=== PATIENT | female | born 1945 | race Caucasian/White ===

== ENCOUNTER 2021-04-12 09:28 | Outpatient (REF) | payer MEDICARE, SELFPAY ==
[2021-04-12 10:30] LABS: MANUAL DIFF FLAG NO
[2021-04-12 10:43] LABS: Basophils Absolute Auto 0.1 X10*3/uL (0.0-0.2); Basophils Percent Auto 1.1 % (0-2); Eosinophils Absolute Auto 0.2 X10*3/uL (0.0-0.4); Eosinophils Percent Auto 2.5 % (0-4); Hematocrit 42.6 % (37-47); Hemoglobin 13.8 g/dl (12.0-16.0); Imm Gran Abs Auto 0.03 X10*3/uL (0.00-0.03); Imm Gran Pct Auto 0.5 % (0.0-0.4); Lymphocytes Absolute Auto 3.1 X10*3/uL (1.2-4.9); Lymphocytes Percent Auto 47.8 % (20-40); Mean Corpuscular HGB Conc 32.4 g/dl (31.0-35.0); Mean Corpuscular Hemoglobin 28.9 pg (27.0-33.0); Mean Corpuscular Volume 89.1 fL (80-98); Mean Platelet Volume 10.5 fL (9.4-12.3); Monocytes Absolute Auto 0.6 X10*3/uL (0.1-1.2); Monocytes Percent Auto 8.5 % (2-11); Neutrophils Absolute Auto 2.6 X10*3/uL (2.0-8.3); Neutrophils Percent Auto 39.6 % (45-73); Platelet Count 274 X10*3/uL (160-400); Red Blood Count 4.78 X10*6/uL (4.20-5.50); Red Cell Distribution Width 13.2 % (11.0-16.0); White Blood Count 6.5 X10*3/uL (4.8-10.8)
[2021-04-12 11:00] LABS: Glucose Urine UA NEG (NEG); Leukocyte Esterase Urine NEG (NEG); Nitrite Urine NEG (NEG); PH 5.5 (5.0-8.0); Specific Gravity - Urine 1.025 (1.005-1.025); Urine Blood NEG (NEG); Urine Ketones NEG (NEG); Urine Protein NEG (NEG-TRACE)
[2021-04-12 11:07] LABS: Appearance Urine CLEAR; Color Urine YELLOW
[2021-04-12 11:22] LABS: Alanine Aminotransferase 24 U/L (0-31); Albumin Level 4.3 g/dL (3.5-5.0); Alkaline Phosphatase 67 U/L (39-117); Anion Gap 13 (12-20); Aspartate Amino Transferase 23 U/L (5-31); Bilirubin Total 0.5 mg/dL (0.0-1.0); Blood Urea Nitrogen 18 mg/dL (9-16); Calcium 9.7 mg/dL (8.4-10.2); Carbon Dioxide 26 mmol/L (22-29); Chloride 106 mmol/L (96-108); Cholesterol 261 mg/dL; Estimated Glomerular Filt Rate 56; Glucose Fasting 85 mg/dL (60-99); HDL Cholesterol 70 mg/dL; LDL Cholesterol Calculated 177 mg/dl; Potassium 4.4 mmol/L (3.3-5.1); Sodium 141 mmol/L (135-145); Total Protein 7.4 g/dL (6.5-8.0); Triglycerides 73 mg/dL
[2021-04-12 13:09] LABS: Reflex LDLD? No
== END 2021-04-12 09:29 | disposition home or self-care (01) ==
LOC: HO.LNP 09:28
PROVIDERS: PCP Internal Medicine; Visit Provider Internal Medicine
DX: Z00.00 Encounter for general adult medical examination without abnormal findings (principal); D72.820 Lymphocytosis (symptomatic); E78.00 Pure hypercholesterolemia, unspecified; I10 Essential (primary) hypertension
CPT/HCPCS: 80053; 80061; 81003; 85025

== ENCOUNTER 2021-10-12 13:59 | Emergency (ER) | payer OTHER, MEDICARE, SELFPAY ==
--- NOTE | ~2021-10-12 | CT_ITS ---
EXAMINATION: CT HEAD WITHOUT CONTRAST CLINICAL INFORMATION: Headache. COMPARISON: None TECHNIQUE: Contiguous axial imaging was performed from the skull base to vertex without intravenous administration of contrast. This CT examination was performed using dose optimization techniques as appropriate, variously including the following: *Automated exposure control *Adjustment of mA and/or kV according to patient size (this includes techniques or standardized protocols for targeted exams where dose is matched to indication/reason for exam; i.e. extremities or head) *Use of iterative reconstruction technique DLP: 603 mGy-cm FINDINGS: There are subarachnoid blood products in the right parieto-occipital lobe for example as visualized on images 26 and 27 of series 2. No extra-axial collections or intraparenchymal hemorrhage. There is no evidence of acute edematous territorial infarction. A few foci of hypoattenuation in the periventricular and deep white matter are consistent with mild microangiopathy. Padgett-white matter differentiation is preserved. Proportional prominence of the ventricles and sulcal spaces. No evidence for obstructive hydrocephalus. No abnormal mass effect or midline shift. No acute soft tissue or osseous abnormalities. The mastoid air cells and paranasal sinuses are clear. CT/CT head/brain wo con IMPRESSION: Small amount of subarachnoid bleeding in the right parieto-occipital lobe. This critical result was discussed with Dr. Paz at 10/12/2021 9:51 PM and it was ascertained that the content and urgency of the report was understood at the time of direct communication.
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
[2021-10-12 14:29] VITALS: BP 147/70; PULSE 84; RESP 18; TEMP 36.6; O2SAT 97
[2021-10-12 20:16] LABS: MANUAL DIFF FLAG NO
[2021-10-12 20:17] LABS: Basophils Absolute Auto 0.1 X10*3/uL (0.0-0.2); Basophils Percent Auto 0.7 % (0-2); Eosinophils Absolute Auto 0.1 X10*3/uL (0.0-0.4); Eosinophils Percent Auto 1.6 % (0-4); Hematocrit 41.9 % (37.0-47.0); Hemoglobin 13.8 g/dl (12.0-16.0); Imm Gran Abs Auto 0.01 X10*3/uL (0.00-0.03); Imm Gran Pct Auto 0.1 % (0.0-0.4); Lymphocytes Absolute Auto 3.1 X10*3/uL (1.2-4.9); Lymphocytes Percent Auto 37.7 % (20-40); Mean Corpuscular HGB Conc 32.9 g/dl (31.0-35.0); Mean Corpuscular Hemoglobin 29.6 pg (27.0-33.0); Mean Corpuscular Volume 89.7 fL (80.0-98.0); Mean Platelet Volume 9.8 fL (9.4-12.3); Monocytes Absolute Auto 0.7 X10*3/uL (0.1-1.2); Monocytes Percent Auto 8.4 % (2-11); Neutrophils Absolute Auto 4.2 x10*3/uL (2.0-8.3); Neutrophils Percent Auto 51.5 % (45-73); Platelet Count 265 X10*3/uL (160-400); Red Blood Count 4.67 X10*6/uL (4.20-5.50); Red Cell Distribution Width 12.3 % (11.0-16.0); White Blood Count 8.1 X10*3/uL (4.8-10.8)
--- NOTE | 2021-10-12 20:33 | ECG_ITS ---
Test Reason : SYNCOPE Blood Pressure : / mmHG Vent. Rate : 079 BPM Atrial Rate : 079 BPM P-R Int : 156 ms QRS Dur : 086 ms QT Int : 386 ms P-R-T Axes : 054 -24 061 degrees QTc Int : 442 ms Normal sinus rhythm Moderate voltage criteria for LVH, may be normal variant ( R in aVL , Stepan product ) Nonspecific ST abnormality Left axis deviation Abnormal ECG No previous ECGs available Referred By: Eric Paz Electronically Signed By:AKUA VALDOVINOS MD
[2021-10-12 20:34] LABS: Alanine Aminotransferase 42 U/L (0-31); Albumin Level 4.5 g/dL (3.5-5.0); Alkaline Phosphatase 65 U/L (39-117); Anion Gap 15 (12-20); Aspartate Amino Transferase 36 U/L (5-31); Bilirubin Total 0.5 mg/dL (0.0-1.0); Blood Urea Nitrogen 15 mg/dL (9-16); Calcium 9.6 mg/dL (8.4-10.2); Carbon Dioxide 25 mmol/L (22-29); Chloride 106 mmol/L (96-108); Creatinine Clr Calc Pharmacy 58.3; Estimated Glomerular Filt Rate > 60; Glucose Random 102 mg/dL (60-115); Potassium 4.8 mmol/L (3.3-5.1); Sodium 141 mmol/L (135-145); Total Protein 7.7 g/dL (6.5-8.0)
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
[2021-10-12 21:08] LABS: Troponin-I High Sensitivity 4.9 ng/L (<3.5-17.0)
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
[2021-10-12 22:38] VITALS: BP 141/68; PULSE 85; RESP 18; O2SAT 97
[2021-10-12 22:43] LABS: COVID-19 Test Negative (Negative); IDNOW Serial# 9DD0AD1C
--- NOTE | 2021-10-12 22:44 | PC.NURSE ---
ems here for transport to [facility]. VS obtained. report given to medics.
[2021-10-12 22:45] VITALS: BP 151/73; PULSE 91; RESP 18; O2SAT 98
--- NOTE | 2021-10-12 22:56 | PC.NURSE ---
REPORT TO PRAMOD MARCUS IN ED AT [facility]. PT LEFT ED IN NAD,
== END 2021-10-12 22:59 | disposition short-term general hospital (02) ==
PROVIDERS: Emergency Provider Emergency Medicine; PCP Internal Medicine
DX: S06.6X0A Traumatic subarachnoid hemorrhage without loss of consciousness, initial encounter (principal); V47.5XXA Car driver injured in collision with fixed or stationary object in traffic accident, initial encounter; R55 Syncope and collapse; I10 Essential (primary) hypertension; Y93.9 Activity, unspecified; Y92.414 Local residential or business street as the place of occurrence of the external cause; Y99.9 Unspecified external cause status
CPT/HCPCS: 36415; 70450; 72125; 80053; 84484; 85025; 87635; 93005; 99285

== ENCOUNTER 2022-02-05 09:53 | Outpatient (REF) | payer MEDICARE, SELFPAY ==
--- NOTE | ~2022-02-05 | CT_ITS ---
EXAMINATION: CT CHEST WITHOUT CONTRAST CLINICAL INFORMATION: Lung nodule COMPARISON: None TECHNIQUE: Multidetector volumetric CT imaging of the chest was done. Axial MIP volume rendering provided. Sagittal and coronal reformatted images were obtained. This CT examination was performed using dose optimization techniques as appropriate, variously including the following: *Automated exposure control *Adjustment of mA and/or kV according to patient size (this includes techniques or standardized protocols for targeted exams where dose is matched to indication/reason for exam; i.e. extremities or head) *Use of iterative reconstruction technique DLP: 151 mGy-cm FINDINGS: LUNGS: Mild biapical pleural and parenchymal scarring. There are multiple small right pulmonary nodules are micronodules. The largest pulmonary nodules are a 3 mm right upper lobe nodule axial image 85 series 6, 3 mm right upper lobe nodule axial image 92 series 6 and a 4 mm peripheral or subpleural right upper lobe nodule axial image 116 series 6. There are several left pulmonary nodules. Largest left pulmonary nodule is a 5 mm peripheral or subpleural left lower lobe nodule axial image 305 series 6. There is a small calcified 2 mm left lower lobe nodule axial image 226 series 6. No evidence of emphysema interstitial lung disease or bronchiectasis is seen. There is no endobronchial or endotracheal lesion. MEDIASTINUM: There is coronary artery calcification. The mediastinum is otherwise normal. PLEURA: There is no pleural effusion. No pleural mass or thickening. AXILLA: No lymphadenopathy. UPPER ABDOMEN: Unremarkable. OSSEOUS STRUCTURES: There are mild degenerative changes of the spine and scoliosis. CT/CT chest wo con IMPRESSION: Small pulmonary nodules, largest measuring 5 mm in the left lower lobe. According to the UPDATED 2017 Fleischner Society recommendations, the advised follow-up imaging for less than 6 mm nodule: Low risk, no chest CT follow-up and high risk, optional chest CT follow-up in one year. Fleischner guidelines were followed.
== END 2022-02-05 09:54 | disposition home or self-care (01) ==
LOC: HO.CT 09:53
PROVIDERS: PCP Internal Medicine; Visit Provider Internal Medicine
DX: R91.1 Solitary pulmonary nodule (principal)
CPT/HCPCS: 71250

== ENCOUNTER → 2022-02-14 14:17 | Outpatient (REF) | payer MEDICARE, SELFPAY ==
--- NOTE | 2022-02-14 14:21 | HM_ITS ---
Conclusion: 1. Patient was monitored for total period of 13 days and 23 hours 2. Baseline was normal sinus rhythm with average heart of 75 beats per minute 3. No significant pauses or bradycardia noted 4. Total of 147 PACs and total of 52 PVCs accounting for very rare ectopics 5. No patient reported events MTDD
== END ==
LOC: HO.CARD 14:17
PROVIDERS: PCP Internal Medicine; Visit Provider Internal Medicine
DX: R55 Syncope and collapse (principal)
CPT/HCPCS: 93246

== ENCOUNTER 2022-03-01 10:39 | Outpatient (REF) | payer MEDICARE, SELFPAY ==
[2022-03-01 10:41] LABS: MANUAL DIFF FLAG NO
[2022-03-01 11:31] LABS: Basophils Absolute Auto 0.1 X10*3/uL (0.0-0.2); Basophils Percent Auto 0.9 % (0-2); Eosinophils Absolute Auto 0.1 X10*3/uL (0.0-0.4); Hematocrit 44.8 % (37.0-47.0); Hemoglobin 13.9 g/dl (12.0-16.0); Imm Gran Abs Auto 0.02 X10*3/uL (0.00-0.03); Imm Gran Pct Auto 0.3 % (0.0-0.4); Lymphocytes Absolute Auto 2.9 X10*3/uL (1.2-4.9); Lymphocytes Percent Auto 44.1 % (20-40); Mean Corpuscular Hemoglobin 29.1 pg (27.0-33.0); Mean Corpuscular Volume 93.9 fL (80.0-98.0); Mean Platelet Volume 10.8 fL (9.4-12.3); Monocytes Absolute Auto 0.6 X10*3/uL (0.1-1.2); Monocytes Percent Auto 8.8 % (2-11); Neutrophils Absolute Auto 2.9 x10*3/uL (2.0-8.3); Neutrophils Percent Auto 43.9 % (45-73); Platelet Count 254 X10*3/uL (160-400); Red Blood Count 4.77 X10*6/uL (4.20-5.50); Red Cell Distribution Width 12.8 % (11.0-16.0); White Blood Count 6.6 X10*3/uL (4.8-10.8)
[2022-03-01 11:49] LABS: Appearance Urine CLEAR; Color Urine YELLOW; Glucose Urine UA NEG (NEG); Leukocyte Esterase Urine NEG (NEG); Nitrite Urine NEG (NEG); PH 5.5 (5.0-8.0); Urine Blood TRACE (NEG); Urine Ketones NEG (NEG); Urine Protein NEG (NEG-TRACE)
[2022-03-01 11:51] LABS: Alanine Aminotransferase 44 U/L (0-31); Albumin Level 4.3 g/dL (3.5-5.0); Alkaline Phosphatase 70 U/L (39-117); Anion Gap 14 (12-20); Aspartate Amino Transferase 35 U/L (5-31); Bilirubin Total 0.7 mg/dL (0.0-1.0); Blood Urea Nitrogen 16 mg/dL (9-16); Calcium 9.6 mg/dL (8.4-10.2); Carbon Dioxide 26 mmol/L (22-29); Chloride 107 mmol/L (96-108); Cholesterol 160 mg/dL; Estimated Glomerular Filt Rate > 60; Glucose Fasting 85 mg/dL (60-99); HDL Cholesterol 73 mg/dL; LDL Cholesterol Calculated 78 mg/dl; Potassium 4.6 mmol/L (3.3-5.1); Sodium 142 mmol/L (135-145); Total Protein 7.4 g/dL (6.5-8.0); Triglycerides 47 mg/dL
[2022-03-01 12:44] LABS: Mucus Urine 1+ /LPF; RBC Urine 0-2 /HPF (0); Squamous Epithelial Cell Urine TRACE /LPF; WBC Urine 0 /HPF (0-4)
== END 2022-03-01 10:40 | disposition home or self-care (01) ==
LOC: HO.LNP 10:39
PROVIDERS: Visit Provider Internal Medicine
DX: Z00.00 Encounter for general adult medical examination without abnormal findings (principal); E78.00 Pure hypercholesterolemia, unspecified; D72.820 Lymphocytosis (symptomatic); I10 Essential (primary) hypertension
CPT/HCPCS: 80053; 80061; 81001; 81003; 85025

== ENCOUNTER 2023-01-27 11:01 | Outpatient (REF) | payer MEDICARE, SELFPAY ==
[2023-01-27 11:34] LABS: Basophils Absolute Auto 0.1 X10*3/uL (0.0-0.2); Basophils Percent Auto 1.2 % (0-2); Eosinophils Absolute Auto 0.2 X10*3/uL (0.0-0.4); Eosinophils Percent Auto 2.5 % (0-4); Hemoglobin 14.2 g/dl (12.0-16.0); Imm Gran Abs Auto 0.02 X10*3/uL (0.00-0.03); Imm Gran Pct Auto 0.3 % (0.0-0.4); Lymphocytes Absolute Auto 3.7 X10*3/uL (1.2-4.9); Lymphocytes Percent Auto 48.6 % (20-40); MANUAL DIFF FLAG SCAN; Mean Corpuscular HGB Conc 32.3 g/dl (31.0-35.0); Mean Corpuscular Hemoglobin 28.8 pg (27.0-33.0); Mean Corpuscular Volume 89.2 fL (80.0-98.0); Mean Platelet Volume 11.6 fL (9.4-12.3); Monocytes Absolute Auto 0.7 X10*3/uL (0.1-1.2); Monocytes Percent Auto 9.5 % (2-11); Neutrophils Absolute Auto 2.9 x10*3/uL (2.0-8.3); Neutrophils Percent Auto 37.9 % (45-73); PLT CLUMP 1; Red Blood Count 4.93 X10*6/uL (4.20-5.50); Red Cell Distribution Width 13.2 % (11.0-16.0); SCAN SMEAR FLAG 1
[2023-01-27 11:38] LABS: Platelet Count 225 X10*3/uL (160-400); White Blood Count 7.6 X10*3/uL (4.8-10.8)
[2023-01-27 11:55] LABS: Appearance Urine Clear; Color Urine Yellow; Glucose Urine UA Negative (Negative); Leukocyte Esterase Urine Trace (Negative); Nitrite Urine Negative (Negative); Specific Gravity - Urine 1.015 (1.005-1.025); UMIC TRIGGER UACC YES; Urine Blood Negative (Negative); Urine Ketones Negative (Negative); Urine Protein Negative (Neg-Trace)
[2023-01-27 11:59] LABS: Bacteria Urine None Seen (None Seen); RBC Urine 0-2 /HPF (0-2); Squamous Epithelial Cell Urine 0-2 /HPF (0-2); WBC Urine 0-5 /HPF (0-5)
[2023-01-27 12:01] LABS: Alanine Aminotransferase 28 U/L (0-31); Albumin Level 4.3 g/dL (3.5-5.0); Alkaline Phosphatase 70 U/L (39-117); Anion Gap 17 (12-20); Aspartate Amino Transferase 30 U/L (5-31); Bilirubin Total 0.7 mg/dL (0.0-1.0); Blood Urea Nitrogen 20 mg/dL (9-16); Calcium 9.8 mg/dL (8.4-10.2); Carbon Dioxide 27 mmol/L (22-29); Chloride 103 mmol/L (96-108); Cholesterol 180 mg/dL; Estimated Glomerular Filt Rate > 60; Glucose Fasting 90 mg/dL (60-99); HDL Cholesterol 72 mg/dL; LDL Cholesterol Calculated 98 mg/dl; Potassium 4.7 mmol/L (3.3-5.1); Sodium 142 mmol/L (135-145); Total Protein 7.5 g/dL (6.5-8.0); Triglycerides 54 mg/dL
[2023-01-27 12:54] LABS: SLIDE REVIEW VERIFIED
== END 2023-01-27 11:02 | disposition home or self-care (01) ==
LOC: HO.LNP 11:01
PROVIDERS: Visit Provider Internal Medicine
DX: Z00.00 Encounter for general adult medical examination without abnormal findings (principal); E78.00 Pure hypercholesterolemia, unspecified; I10 Essential (primary) hypertension; D72.820 Lymphocytosis (symptomatic)
CPT/HCPCS: 80053; 80061; 81001; 85025

== ENCOUNTER 2023-03-18 10:28 | Outpatient (REF) | payer MEDICARE, SELFPAY ==
--- NOTE | ~2023-03-18 | XR_ITS ---
EXAMINATION: XR LUMBOSACRAL SPINE WITH OBLIQUES CLINICAL INFORMATION: Lumbar radiculopathy. COMPARISON: None available. TECHNIQUE: AP, both oblique, and lateral views of the lumbar spine. Lateral view of the lumbosacral junction. FINDINGS: There are 5 [id number]-cykpcta lumbar vertebra. There is significant narrowing of the L4-L5 disc space with marginal sclerosis and spurring. There is narrowing of the L5-S1 disc space. There is facet arthropathy present L4-S1 most prominent on the right side. Pedicles appear intact. No acute fracture is appreciated. There is minimal spondylolisthesis at the L4-L5 level. No spondylolysis is identified. No significant abnormality of sacroiliac joints is seen. XR/XR lumbar spine 4V min IMPRESSION: Degenerative disc disease seen L4-S1 without evidence of acute fracture. Minimal spondylolisthesis at the L4-L5 level.
== END 2023-03-18 10:29 | disposition home or self-care (01) ==
LOC: HO.XRAY 10:28
PROVIDERS: PCP Internal Medicine; Visit Provider Psychiatry & Neurology Neurology
DX: M54.16 Radiculopathy, lumbar region (principal)
CPT/HCPCS: 72110

== ENCOUNTER 2024-02-02 10:56 | Outpatient (REF) | payer MEDICARE, SELFPAY ==
[2024-02-02 11:01] LABS: MANUAL DIFF FLAG NO
[2024-02-02 11:22] LABS: Appearance Urine Clear; Color Urine Yellow; Glucose Urine UA Negative (Negative); Leukocyte Esterase Urine Small (1+) (Negative); Nitrite Urine Negative (Negative); PH 5.5 (5.0-9.0); UMIC TRIGGER UACC YES; Urine Blood Negative (Negative); Urine Ketones Negative (Negative); Urine Protein Negative (Neg-Trace)
[2024-02-02 11:24] LABS: Basophils Absolute Auto 0.1 X10*3/uL (0.0-0.2); Eosinophils Absolute Auto 0.3 X10*3/uL (0.0-0.4); Eosinophils Percent Auto 3.7 % (0-4); Hematocrit 40.3 % (37.0-47.0); Hemoglobin 13.1 g/dl (12.0-16.0); Imm Gran Abs Auto 0.02 X10*3/uL (0.00-0.03); Imm Gran Pct Auto 0.3 % (0.0-0.4); Lymphocytes Percent Auto 43.7 % (20-40); Mean Corpuscular HGB Conc 32.5 g/dl (31.0-35.0); Mean Corpuscular Hemoglobin 29.2 pg (27.0-33.0); Mean Platelet Volume 10.6 fL (9.4-12.3); Monocytes Absolute Auto 0.5 X10*3/uL (0.1-1.2); Monocytes Percent Auto 7.6 % (2-11); Neutrophils Percent Auto 43.7 % (45-73); Platelet Count 270 X10*3/uL (160-400); Red Blood Count 4.48 X10*6/uL (4.20-5.50); Red Cell Distribution Width 13.4 % (11.0-16.0)
[2024-02-02 11:43] LABS: Bacteria Urine None Seen (None Seen); Hyaline Casts Urine 0-2 /LPF (0-2); RBC Urine 0-2 /HPF (0-2); Squamous Epithelial Cell Urine 0-2 /HPF (0-2); UACC Culture Trigger YES; WBC Urine 0-5 /HPF (0-5)
[2024-02-02 13:01] LABS: Alanine Aminotransferase 21 U/L (0-31); Alkaline Phosphatase 65 U/L (39-117); Anion Gap 11 (12-20); Aspartate Amino Transferase 25 U/L (5-31); Bilirubin Total 0.5 mg/dL (0.0-1.0); Blood Urea Nitrogen 22 mg/dL (9-16); Calcium 9.3 mg/dL (8.4-10.2); Carbon Dioxide 26 mmol/L (22-29); Chloride 109 mmol/L (96-108); Cholesterol 176 mg/dL (<200); Estimated Glomerular Filt Rate > 60; Glucose Fasting 96 mg/dL (60-99); HDL Cholesterol 68 mg/dL (>40); LDL Cholesterol Calculated 96 mg/dL (<100); Potassium 4.6 mmol/L (3.3-5.1); Sodium 141 mmol/L (135-145); Total Protein 7.2 g/dL (6.5-8.0); Triglycerides 60 mg/dL (<150)
== END 2024-02-02 10:57 | disposition home or self-care (01) ==
LOC: HO.LNP 10:56
PROVIDERS: Visit Provider Internal Medicine
DX: Z00.00 Encounter for general adult medical examination without abnormal findings (principal); D72.820 Lymphocytosis (symptomatic); I10 Essential (primary) hypertension; E78.00 Pure hypercholesterolemia, unspecified
CPT/HCPCS: 80053; 80061; 81001; 85025; 87086; 87147

== ENCOUNTER 2024-09-28 11:00 | Outpatient (REF) | payer MEDICARE, SELFPAY ==
[2024-09-28 11:22] LABS: Alanine Aminotransferase 23 U/L (0-31); Albumin Level 4.2 g/dL (3.5-5.0); Alkaline Phosphatase 70 U/L (39-117); Aspartate Amino Transferase 34 U/L (5-31); Bilirubin Direct 0.3 mg/dL (0.0-0.5); Bilirubin Total 0.6 mg/dL (0.0-1.0); Cholesterol 161 mg/dL (<200); HDL Cholesterol 75 mg/dL (>40); LDL Cholesterol Calculated 75 mg/dL (<100); Total Protein 7.4 g/dL (6.5-8.0); Triglycerides 58 mg/dL (<150)
[2024-09-28 14:20] LABS: Reflex LDLD? No
== END 2024-09-28 11:01 | disposition home or self-care (01) ==
LOC: HO.LNP 11:00
PROVIDERS: Visit Provider Internal Medicine
DX: E78.00 Pure hypercholesterolemia, unspecified (principal)
CPT/HCPCS: 80061; 80076

== ENCOUNTER 2025-02-03 10:12 | Outpatient (REF) | payer MEDICARE, SELFPAY ==
[2025-02-03 10:49] LABS: Appearance Urine Clear; Color Urine Yellow; Glucose Urine UA Negative (Negative); Leukocyte Esterase Urine Negative (Negative); Nitrite Urine Negative (Negative); PH 5.5 (5.0-9.0); Specific Gravity - Urine 1.015 (1.005-1.025); Urine Blood Negative (Negative); Urine Ketones Negative (Negative); Urine Protein Negative (Neg-Trace)
[2025-02-03 10:53] LABS: Basophils Absolute Auto 0.1 X10*3/uL (0.0-0.2); Basophils Percent Auto 0.9 % (0-2); Eosinophils Absolute Auto 0.2 X10*3/uL (0.0-0.4); Eosinophils Percent Auto 2.5 % (0-4); Hematocrit 40.5 % (37.0-47.0); Imm Gran Abs Auto 0.02 X10*3/uL (0.00-0.03); Imm Gran Pct Auto 0.3 % (0.0-0.4); Lymphocytes Absolute Auto 3.1 X10*3/uL (1.2-4.9); Lymphocytes Percent Auto 48.4 % (20-40); MANUAL DIFF FLAG NO; Mean Corpuscular HGB Conc 32.1 g/dl (31.0-35.0); Mean Corpuscular Hemoglobin 29.3 pg (27.0-33.0); Mean Corpuscular Volume 91.2 fL (80.0-98.0); Mean Platelet Volume 10.6 fL (9.4-12.3); Monocytes Absolute Auto 0.5 X10*3/uL (0.1-1.2); Monocytes Percent Auto 7.7 % (2-11); Neutrophils Absolute Auto 2.5 x10*3/uL (2.0-8.3); Neutrophils Percent Auto 40.2 % (45-73); Platelet Count 259 X10*3/uL (160-400); Red Blood Count 4.44 X10*6/uL (4.20-5.50); Red Cell Distribution Width 13.2 % (11.0-16.0); White Blood Count 6.3 X10*3/uL (4.8-10.8)
[2025-02-03 10:55] LABS: Bacteria Urine None Seen (None Seen); Hyaline Casts Urine 0-2 /LPF (0-2); RBC Urine 0-2 /HPF (0-2); Squamous Epithelial Cell Urine 0-2 /HPF (0-2); WBC Urine 0-5 /HPF (0-5)
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
--- OUTSIDE RECORDS SUMMARY | 2025-02-03 12:40 | XMS_ITS ---
Author Organization Dominick Bolivar MD Address [address] [place], [place] [phone] Care Team Providers Care Gamma Ray Operator Name Role Phone Dominick Bolivar Primary Care Provider Results Component Value Reference Range Notes Liver Panel Reviewed date:09/28/2024 04:54:14 PM Interpretation: Performing Lab:[facility], [address] [place] [phone] Notes/Report: Bilirubin Total 0.6 0.0-1.0 mg/dL Bilirubin Direct 0.3 0.0-0.5 mg/dL Aspartate Amino Transferase 34 5-31 U/L Alanine Aminotransferase 23 0-31 U/L Total Protein 7.4 6.5-8.0 g/dL Albumin Level 4.2 3.5-5.0 g/dL Alkaline Phosphatase 70 39-117 U/L Lipid Panel with Reflex Reviewed date:09/28/2024 05:00:35 PM Interpretation: Performing Lab:[facility], [address] [place] [phone] Notes/Report: Triglycerides 58 <150 mg/dL Desirable Triglyceride: less than 150 mg/dL Borderline High Triglyceride 150-199 mg/dL High Triglyceride: 200-499 mg/dL Very High Triglyceride: greater than or equal to 5OO mg/dL Cholesterol 161 <200 mg/dL Desirable Cholesterol: less than 200 mg/dL Borderline High Cholesterol: 200-239 mg/dL High Cholesterol: greater than 239 mg/dL LDL Cholesterol Calculated 75 <100 mg/dL Desirable LDL: less than 100 mg/dL Near Optimal/Above Optimal LDL: 110-129 mg/dL Borderline High LDL: 130-159 mg/dL High LDL: 160-189 mg/dL Very High LDL: greater than or equal to 190 mg/dL HDL Cholesterol 75 >40 mg/dL Desirable HDL: greater than 40 mg/dL Note: This HDL assay may give artificially low results in patients with liver disease. REASON FOR VISIT fasting lipids and liver Encounters Encounter Location Date Provider Diagnosis Dominick Bolivar MD [address] [place] [address] [place] [phone] 09/28/2024 Dominick Bolivar Pure hypercholestero lemia E78.00 Assessments Encounter Date Diagnosis (ICD Code) Assessment Notes Treatment Notes Treatment Clinical Notes Section Notes 09/28/2024 Pure hypercholesterolemia (ICD-10 - E78.00) Plan Of Treatment Next Appt Details Provider Name:Dominick Mcadams ier, 02/10/2025 09:30:00 AM, [address] [place] [address], Suite [facility], [place], [place], [phone], Progress Notes * Bertin MUNOZaDOB:1944 (79 yo F)Acc No.[id number]:09/28/2024 Progress Note Patient:Lisa GALLEGOS Provider:?Dominick Bolivar MD :1945???Age:78 Y???Sex:Female D ate:09/28/2024 Address:[address] [place] [address] Subjective: * Chief Complaints: * ???1. Fasting lipids and marc er. * Medical History:? Objective: * Vitals:? Assessment: * Assessment: 1.?Pure hypercholesterolemia - E78.00 (Primary)??? Plan: * Treatment: * Procedure Codes:?91649 VENIP UNCT, ROUTINE* * * The named appointment provid er may or may not be the originator of this progress note, and it is not deemed complete until electronically signed by the appointment provider. Sign off status: Pending * Provider:?Dominick Bolivar MD Date:?1 11/28/2023 Generated for Deep gunn/Michael/Geovannaitting on:?02/03/2025 12:40 PM EDT
--- OUTSIDE RECORDS SUMMARY | 2025-02-03 12:40 | XMS_ITS | Patient Health Record ---
Author Organization Dominick Bolivar MD Address [address] [place], [place] [phone] Care Team Providers Care Toolmaker Grade Three Name Role Phone Dominick Bolivar Primary Care Provider [phone] Allergies No Known Allergies Results Component Value Reference Range Notes Liver Panel Reviewed date:09/28/2024 04:54:14 PM Interpretation: Performing Lab:[facility], [address] [place] [phone] Notes/Report: Bilirubin Total 0.6 0.0-1.0 mg/dL Bilirubin Direct 0.3 0.0-0.5 mg/dL Aspartate Amino Transferase 34 5-31 U/L Alanine Aminotransferase 23 0-31 U/L Total Protein 7.4 6.5-8.0 g/dL Albumin Level 4.2 3.5-5.0 g/dL Alkaline Phosphatase 70 39-117 U/L Lipid Panel with Reflex Reviewed date:09/28/2024 05:00:35 PM Interpretation: Performing Lab:[address] [phone] Notes/Report: Triglycerides 58 <150 mg/dL Desirable Triglyceride: [...] low results in patients with liver disease. Complete Blood Count Auto Di ff (Not yet reviewed by provider) Interpretation: Performing Lab:[facility], [address] [place] [phone] Notes/Report: White Blood Count 6.3 4.8-10.8 X10*3/uL Red Blood Count 4.44 4.20-5.50 X10*6/uL Hemoglobin 13.0 12.0-16.0 g/dl Hematocrit 40.5 37.0-47.0 % Mean Corpuscular Volume 91.2 80.0-98.0 fL Mean Corpuscular Hemoglobin 29.3 27.0-33.0 pg Mean Corpuscular HGB Conc 32.1 31.0-35.0 g/dl Red Cell Distribution Width 13.2 11.0-16.0 % Platelet Count 259 160-400 X10*3/uL Mean Platelet Volume 10.6 9.4-12.3 fL Neutrophils Percent Auto 40.2 45-73 % Imm Gran Pct Auto 0.3 0.0-0.4 % Lymphocytes Percent Auto 48.4 20-40 % Monocytes Percent Auto 7.7 2-11 % Eosinophils Percent Auto 2.5 0-4 % Basophils Percent Auto 0.9 0-2 % NRBC Pct Auto 0.0 0.0-0.2 /100WBC Neutrophils Absolute Auto 2.5 2.0-8.3 x10*3/u L Imm Gran Abs Auto 0.02 0.00-0.03 X10*3/uL Lymphocytes Absolute Auto 3.1 1.2-4.9 X10*3/u L Monocytes Absolute Auto 0.5 0.1-1.2 X10*3/uL Eosinophils Absolute Auto 0.2 0.0-0.4 X10*3/u L Basophils Absolute Auto 0.1 0.0-0.2 X10*3/uL NRBC Abs Auto 0.000 0.0-0.012 X10*3/uL UA ClnCatch+Micro w/rflx Cul t (Not yet reviewed by provider) Interpretation: Performing Lab:[facility], [address] [place] [phone] Notes/Report: Urine, Clean Catch Color Urine Yellow Appearance Urine Clear PH 5.5 5.0-9.0 Glucose Urine UA Negative Negative mg/dL Urine Blood Negative Negative Specific [place] - Urine 1.015 1.005-1.025 Urine Protein Negative Neg-Trace mg/dL Urine Ketones Negative Negative mg/dL Nitrite Urine Negative Negative Leukocyte Esterase Urine Negative Negative RBC Urine 0-2 0-2 /HPF WBC Urine 0-5 0-5 /HPF Squamous Epithelial Cell Urine 0-2 0-2 /HPF Bacteria Urine None Seen None Seen Hyaline Casts Urine 0-2 0-2 /LPF Occult Blood, Stool, Guaiac Reviewed date:02/09/2024 10:19:05 AM Interpretation:Negative Performing Lab: Notes/Report: Negative Occult Blood, Stool, Guaiac Neg Hold Ruy Reviewed date:09/28/2024 11:51:08 AM Interpretation: Performing Lab:[facility], [address] [place] [phone] Notes/Report: Alonzo Redmond See Note Specimen held untested for 24 hours; Call to request Chemistry testing. Reason For Referral No Information Medications Medication SIG (Take, Route, Frequency, Duration) [...] Once a day for 30 day(s) Active Immunizations Vaccine Route Administration Date Status Comme nts SARS-COV-2 Moderna Unknown 01/18/2021 Administered SARS-COV-2 Moderna Unknown 02/15/2021 Administered SARS-COV-2 Moderna Unknown 01/18/2021 Administered SARS-COV-2 Moderna Unknown 02/15/2021 Administered Flu Vaccine Unknown 09/12/2014 Refused PPSV23 (Pnemovax) Unknown 02/21/2014 Refused Prevnar 13 Unknown 02/21/2014 Refused PPSV23 (Pnemovax) Unknown 03/24/2017 Refused Shingles Unknown 03/24/2017 Refused PPSV23 (Pnemovax) Unknown 03/23/2018 Refused Fluarix Quadrivalent Unknown 04/06/2019 Refused PPSV23 (Pnemovax) Unknown 04/17/2021 Refused Prevnar 13 Unknown 04/17/2021 Refused Influenza High Dose Unknown 10/09/2021 Refused Social History Tobacco Use: Social History Observation Description Date Details (start date - stop date) Never Smoker NA - NA Tobacco Use/Smoking Question Answer Notes Patient is a nonsmoker Additional Findings: Tobacco Non-User Cu rrent non-smoker, currently using no form of tobacco Alcohol Screen Question Answer Notes Did you have a drink containing alcohol in the p ast year? No Points 0 Interpretation Negative Problems Problem Type SNOMED Code ICD Code Onset Dates Problem Status W/U Status Risk Notes Problem 57587072 Lymphocytosis (D72.820) Active confirm ed Problem 524498342 Other specified menopausal and perimenopausal disorders (N95.8) Active confirmed Problem Solitary nodule of lung (095965825) Lung nodule (R91.1) Active confirmed Problem 15268361 Labile hypertens ion (I10) Active confirmed Problem 884686321 Pure hypercholesterolemia (E78.00) Active confirmed Problem 377868767 BMI 32.0-32.9,ad ult (Z68.32) Active confirmed Problem 305794165 Subarachnoid ble ed (I60.9) Active confirmed Vital Signs Blood pressure diastolic 60 mm Hg 10/05/2024 juan ght is down 12 pounds since 02-09-24 Height 62.5 in 10/05/2024 weight is down 12 pounds since 02-09-24 Blood pressure systolic 118 mm Hg 10/05/2024 weig ht is down 12 pounds since 02-09-24 Weight 173 lbs 10/05/2024 weight is down 12 pounds since 02-09-24 BMI 31.13 kg/m2 10/05/2024 weight is down 12 pounds since 02-09-24 Encounters Encounter Location Date Provider Diagnosis Dominick Bolivar MD [address] [place] [id number] 09/28/2024 Dominick Bolivar Pure hypercholestero lemia E78.00 Dominick Bolivar MD [address] [place] [phone] 02/03/2025 Dominick Bolivar Blood tests for rout ine general physical examination Z00.00 ; Lymphocytosis D72.820 ; Pure hypercholesterolemia E78.00 and Labile hypertension I10 Dominick Bolivar MD [address] [place] [id number] 02/09/2024 Dominick Bolivar Pure hypercholestero lemia E78.00 ; Annual physical exam Z00.00 ; Labile hypertension I10 ; Lymphocytosis D72.820 ; Colon cancer screening Z12.11 and Depression screening Z13.31 Dominick Bolivar MD [address] [place] [address] [address] [place] [phone] 10/05/2024 Dominick Bolivar Pure hypercholestero lemia E78.00 ; Labile hypertension I10 and Pain in right knee M25.561 Assessments Encounter Date Diagnosis (ICD Code) Assessment Notes Treatment Notes Treatment Clinical Notes Section Notes 09/28/2024 Pure hypercholesterolemia (ICD-10 - E78.00) 02/03/2025 Blood tests for rout ine general physical examination (ICD-10 - Z00.00) 02/09/2024 Pure hypercholesterolemia (ICD-10 - E78.00) stable, will continue current regiment 02/09/2024 Annual physical exam (ICD-10 - Z00.00) labs reviewed and discussed with patient 10/05/2024 Pure hypercholesterolemia (ICD-10 - E78.00) doing well on meds. will contiue current regiment 10/05/2024 Labile hypertension (ICD-10 - I10) stable, will continue current regiment 02/03/2025 Lymphocytosis (ICD-1 0 - D72.820) 02/09/2024 Labile hypertension (ICD-10 - I10) 10/05/2024 Pain in right knee (ICD-10 - M25.561) is improving so will observe, patient will contact office is sx's continue 02/03/2025 Pure hypercholesterolemia (ICD-10 - E78.00) 02/09/2024 Lymphocytosis (ICD-1 0 - D72.820) 02/03/2025 Labile hypertension (ICD-10 - I10) 02/09/2024 Colon cancer screeni ng (ICD-10 - Z12.11) guaiac negative 02/09/2024 Depression screening (ICD-10 - Z13.31) negative screen Plan Of Treatment Pending Test Test Name Order Date Electrocardiogram (EKG) 10/21/2011 MRI BRAIN NO CONTRAST 10/09/2021 Cardiac Event Monitor 10/30/2021 Holter monitor 01/07/2022 Complete Blood Count Auto Diff Comprehensive [place]. Panel Fast Lipid Panel 02/03/2025 ECG 30 day event monitor 11/13/2021 CT chest wo con 12/27/2021 XR DEXA axial skeleton 04/17/2021 UA ClnCatch+Micro w/rflx Cult 02/03/2025 BONE DENSITY DEXA 04/06/2019 Next Appt Details Provider Name:Dominick sweet, 02/10/2025 09:30:00 AM, [address] [place] [address], [address], [place], [place], [phone], Insurance Providers Payer Name Payer Address Payer Phone Subscriber Number Group Number Insured Name Patient Relationship to Insured Coverage Start Date Coverage End Date [employer] [facility] [address] [place] [phone] [id number] Lisa Espinosa Self - patient is the insured MEDICARE NH[address] [place] [address] [id number] Lisa Espinosa Self - patient is the insured Medical (General) History Medical History History ICD Code lung nodule in 2002. followe d from 2001 aand disappeared 2021 no need for further follow up colonoscopy 10/21/[address] Sheppard, dis cussed need again 2015 have gone over her choloster ol again and she thinks that statins cause heart attacks spoke to her about mammo and she refuses 2023
--- OUTSIDE RECORDS SUMMARY | 2025-02-03 12:40 | XMS_ITS ---
Author Organization Dominick Bolivar MD Address [address] [place], [place] [phone] Care Team Providers Care Interior Design Program Chair Name Role Phone Dominick Bolivar Primary Care Provider Results Component Value Reference Range Notes Complete Blood Count Auto Di ff (Not yet reviewed by provider) Interpretation: Performing Lab:[facility], [address] [place] [phone] Notes/Report: White Blood Count 6.3 4.8-10.8 X10*3/uL [...] (Not yet reviewed by provider) Interpretation: Performing Lab:[facility], [address] [place] [phone] Notes/Report: Urine, Clean Catch Color Urine Yellow Appearance Urine Clear PH 5.5 5.0-9.0 Glucose Urine UA Negative Negative mg/dL Urine Blood Negative Negative Specific [place] - Urine 1.015 1.005-1.025 Urine Protein Negative Neg-Trace mg/dL Urine Ketones Negative Negative mg/dL Nitrite Urine Negative Negative Leukocyte Esterase Urine Negative Negative RBC Urine 0-2 0-2 /HPF WBC Urine 0-5 0-5 /HPF Squamous Epithelial Cell Urine 0-2 0-2 /HPF Bacteria Urine None Seen None Seen Hyaline Casts Urine 0-2 0-2 /LPF REASON FOR VISIT yearly fasting labs Encounters Encounter Location Date Provider Diagnosis Dominick Bolivar MD [address] [place] [address] [address] [place], [place] [phone] 02/03/2025 Dominick Bolivar Blood tests for rout ine general physical examination Z00.00 ; Lymphocytosis D72.820 ; Pure hypercholesterolemia E78.00 and Labile hypertension I10 Assessments Encounter Date Diagnosis (ICD Code) Assessment Notes Treatment Notes Treatment Clinical Notes Section Notes 02/03/2025 Blood tests for rout ine general physical examination (ICD-10 - Z00.00) 02/03/2025 Lymphocytosis (ICD-1 0 - D72.820) 02/03/2025 Pure hypercholesterolemia (ICD-10 - E78.00) 02/03/2025 Labile hypertension (ICD-10 - I10) Plan Of Treatment Pending Test Test Name Order Date Complete Blood Count Auto Diff 5 Comprehensive [place]. Panel Fast 5 Lipid Panel 02/03/2025 UA ClnCatch+Micro w/rflx Cult 02/03/2025 Next Appt Details Provider Name:Dominick Mcadams ier, 02/10/2025 09:30:00 AM, [address] [facility], [address], [place], [place], [phone], Progress Notes * Bertin MUNOZaDOB:1944 (79 yo F)Acc No.[id number]:02/03/2025 Progress Note Patient:?Lisa MUNOZ Provider:?Dominick Bolivar MD :1945???Age:79 Y???Sex:Female D ate:02/03/2025 Address:[address] [place], [place] [phone] Subjective: * Chief Complaints: * ???1. Yearly fasting labs. * Medical History:? Objective: * Vitals:? Assessment: * Assessment: 1.?Blood tests for routine g eneral physical examination - Z00.00 (Primary)???2.?Lymphocytosis - D72.820???3.?Pure hypercholesterolemia - E78.00???4.?Labile hypertension - I10??? Plan: * Treatment: 2.?Lymphocytosis?LAB: Complete Blood Count Auto Diff (Collection Date & Time - 02/03/2025 10:56 AM) ?LAB: Comprehensive [place]. Panel Fast ?LAB: Lipid Panel ?LAB: UA ClnCatch+Micro w/rflx Cult (Collection Date & Time - 02/03/2025 10:56 AM) 3.?Pure hypercholesterolemia ?LAB: Complete Blood Count Auto Diff (Collection Date & Time - 02/03/2025 10:56 AM) ?LAB: Comprehensive [place]. Panel Fast ?LAB: Lipid Panel ?LAB: UA ClnCatch+Micro w/rflx Cult (Collection Date & Time - 02/03/2025 10:56 AM) 4.?Labile hypertension?LAB: Complete Blood Count Auto Diff (Collection Date & Time - 02/03/2025 10:56 AM) ?LAB: Comprehensive [place]. Panel Fast ?LAB: Lipid Panel ?LAB: UA ClnCatch+Micro w/rflx Cult (Collection Date & Time - 02/03/2025 10:56 AM) * Procedure Codes:?36308 VENIP UNCT, ROUTINE* * * The named appointment provid er may or may not be the originator of this progress note, and it is not deemed complete until electronically signed by the appointment provider. Sign off status: Pending * Provider:?Dominick Bolivar MD Date:?0 02/03/2025 Generated for Deep gunn/Michael/Geovannaitting on:?02/03/2025 12:39 PM EDT
[2025-02-03 13:51] LABS: Alanine Aminotransferase 30 U/L (0-31); Albumin Level 4.1 g/dL (3.5-5.0); Alkaline Phosphatase 73 U/L (39-117); Anion Gap 13 (12-20); Aspartate Amino Transferase 32 U/L (5-31); Bilirubin Total 0.5 mg/dL (0.0-1.0); Blood Urea Nitrogen 15 mg/dL (9-16); Calcium 9.5 mg/dL (8.4-10.2); Carbon Dioxide 26 mmol/L (22-29); Chloride 109 mmol/L (96-108); Cholesterol 163 mg/dL (<200); Estimated Glomerular Filt Rate > 60; Glucose Fasting 88 mg/dL (60-99); HDL Cholesterol 71 mg/dL (>40); LDL Cholesterol Calculated 79 mg/dL (<100); Potassium 4.2 mmol/L (3.3-5.1); Sodium 144 mmol/L (135-145); Total Protein 7.6 g/dL (6.5-8.0); Triglycerides 68 mg/dL (<150)
== END 2025-02-03 10:13 | disposition home or self-care (01) ==
LOC: HO.LNP 10:12
PROVIDERS: Visit Provider Internal Medicine
DX: Z00.00 Encounter for general adult medical examination without abnormal findings (principal); D72.820 Lymphocytosis (symptomatic); E78.00 Pure hypercholesterolemia, unspecified; I10 Essential (primary) hypertension
CPT/HCPCS: 80053; 80061; 81001; 85025

== ENCOUNTER → 2025-02-14 08:12 | Outpatient (REF) | payer MEDICARE, SELFPAY ==
--- NOTE | 2025-02-14 08:19 | CA_ITS ---
Acquisition Time: 2025-02-14 08:44:49 Total Exercise Time: 00:05:16 Test Indications: CHEST PAIN Medications: LOSARTAN ROSUVASTIN Protocol: MENDY Max HR: 133 BPM 95% of Pred: 139 BPM Max BP: 148/90 mmHG Max Work Load: 5.1 METS Exercise stress test with exercise 5 mins 16 secs of Mendy Protocol, held at Stage 1 due to leg pain- able to increase incline to 12%, achieving 95% MPHR, without any anginal symptoms, with isolated PVCs, with normotensive response to exercise. Without EKG changes meeting criteria for ischemia. Test reviewed with Dr. Lou. Referred By: Dominick Bolivar Electronically Signed By: Bruce Cardona
== END ==
LOC: HO.CARD 08:12
PROVIDERS: PCP Internal Medicine; Visit Provider Internal Medicine
DX: R07.89 Other chest pain (principal)
CPT/HCPCS: 93017

== ENCOUNTER → 2025-02-14 08:19 | Outpatient (BNV) | payer MEDICARE, SELFPAY | PROVIDERS: PCP Internal Medicine | DX: I49.3 Ventricular premature depolarization (principal) | CPT/HCPCS: 93016; 93018 ==